=== PATIENT | female | born 1940 | race Caucasian/White ===

== ENCOUNTER → 2024-12-29 12:57 | Outpatient (CLI) | payer MEDICARE, OTHER, SELFPAY ==
--- NOTE | 2024-12-29 12:59 | DI.MRI.S_ITS ---
PROCEDURE: MR ANKLE RT WO CON INDICATIONS: PAIN TECHNIQUE: Noncontrast sagittal T1 spin echo and T2 fast spin echo with fat saturation, axial proton density fast spin echo and T2 fast spin echo with fat saturation, coronal T1 spin echo and T2 fast spin echo with fat saturation through the ankle/hindfoot. COMPARISON: None. FINDINGS: Quality: Adequate Extensor tendons: Unremarkable Medial ankle tendons: Posterior tibialis tendon: Intact. Flexor digitorum longus tendon: Intact. Flexor hallucis longus tendon: Intact. Medial ankle ligaments: Deltoid ligament, superficial and deep: Intact Spring ligaments: Intact. Lateral ankle tendons: Peroneus brevis tendon: Tendinopathy. Peroneus longus tendon: Split tear of the inframalleolar portion. Tendon sheath distended by fluid. Lateral ankle ligaments: Tibiofibular ligaments: Intact Anterior talofibular ligament: Intact. Posterior talofibular ligament: Intact. Calcaneofibular ligament: Intact. Achilles tendon: Marked Achilles tendon thickening at the noninsertional portion with partial with partial-thickness interstitial tearing approximately 4.5 centimeters proximal to the insertion. Plantar fascia: Chronic thickening with calcaneal spurring but no edema.. Sinus tarsi: Unremarkable. Tarsal tunnel: Unremarkable. Cartilage: Severe osteoarthritis at the navicular cuneiform joint with subchondral marrow edema like lesions, full-thickness cartilage loss and marginal osteophytes. Advanced osteoarthritis at the 4 -5 tarsometatarsal joints. 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 Degenerative changes at the anterior process of the calcaneus. Bones: No fracture. Joints: No effusion. Other: Subcutaneous edema, greatest along the lateral ankle.. 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 Split tear of peroneus longus tendon. Dictated by: Marvin Bates M.D. on 12/29/2024 at 14:04 Approved by: Marvin Bates M.D. on 12/29/2024 at 14:13
== END ==
LOC: MRI 12:58
PROVIDERS: PCP Family Medicine; Referring Provider Family Medicine; Visit Provider Podiatrist
DX: S86.011A Strain of right Achilles tendon, initial encounter (principal); S96.811A Strain of other specified muscles and tendons at ankle and foot level, right foot, initial encounter; M19.071 Primary osteoarthritis, right ankle and foot; M25.571 Pain in right ankle and joints of right foot
CPT/HCPCS: 73721

== ENCOUNTER → 2024-12-30 13:04 | Outpatient (CLI) | payer MEDICARE, OTHER, SELFPAY ==
[2024-12-30 19:23] LABS: Add Manual Diff / Slide Review NO; Hematocrit 42.2 % (36-46); Hemoglobin 14.2 g/dL (12.0-16.0); Lymphocytes Absolute Auto 1100 /uL (1100-4500); Mean Corpuscular HGB Conc 33.6 % (30-36); Mean Corpuscular Hemoglobin 31.0 PG (26-34); Mean Corpuscular Volume 92.3 fL (80-100); Platelet Count 148 X10^3/uL (150-400)
[2024-12-30 19:35] LABS: Hemoglobin A1C% w Est Avg Glu 5.6 % (4.0-6.0)
[2024-12-30 19:36] LABS: HEMOLYSIS < 15 (0-50); Iron 107 ug/dL (37-170)
[2024-12-30 19:41] LABS: Alanine Aminotransferase 16 IU/L (<35); Albumin 3.6 g/dL (3.5-5.0); Albumin Globulin Ratio 1.3 (1.0-2.8); Alkaline Phosphatase 94 U/L (38-126); Blood Urea Nitrogen 20 mg/dL (7-17); Calcium 9.4 mg/dL (8.4-10.2); Carbon Dioxide 25 mmol/L (22-32); Chloride 107 mmol/L (98-107); Cholesterol 182 mg/dL (140-199); Estimated Glomerular Filt Rate > 60 mL/min (>60); Globulin 2.8 g/dL (1.7-4.1); Glucose 100 mg/dL (70-99); HDL Cholesterol 56 mg/dL (40-60); HEMOLYSIS < 15 (0-50); Potassium 4.4 mmol/L (3.4-5.1); Sodium 138 mmol/L (137-145); Total Protein 6.4 g/dL (6.3-8.2); Triglycerides 93 mg/dL (35-150)
[2024-12-30 19:49] LABS: Percent Iron Saturation 31 % (15-50); Total Iron Binding Capacity 341 ug/dL (265-497); Transferrin 277 mg/dL (206-381)
[2024-12-30 20:13] LABS: Ferritin 28 ng/mL (11-264); Thyroid Stimulating Hormone 2.73 uIU/mL (0.47-4.68)
[2024-12-30 20:32] LABS: Vitamin B12 390 pg/mL (239-931)
== END ==
PROVIDERS: PCP Family Medicine; Visit Provider Family Medicine
DX: I10 Essential (primary) hypertension (principal); L29.9 Pruritus, unspecified; Z86.2 Personal history of diseases of the blood and blood-forming organs and certain disorders involving the immune mechanism; Z86.79 Personal history of other diseases of the circulatory system; D75.1 Secondary polycythemia; E66.01 Morbid (severe) obesity due to excess calories; Z13.6 Encounter for screening for cardiovascular disorders; Z13.29 Encounter for screening for other suspected endocrine disorder
CPT/HCPCS: 80053; 80061; 82607; 82728; 83036; 83540; 83550; 84443; 85025

== ENCOUNTER → 2025-02-23 11:14 | Outpatient (CLI) | payer MEDICARE, OTHER, SELFPAY | PROVIDERS: PCP Family Medicine; Visit Provider Family Medicine | DX: M25.50 Pain in unspecified joint (principal); M25.60 Stiffness of unspecified joint, not elsewhere classified; G47.33 Obstructive sleep apnea (adult) (pediatric); G47.19 Other hypersomnia | CPT/HCPCS: 85651; 86038; 86140; 86200; 86430 ==